=== PATIENT | male | born 1970 | race Caucasian/White ===

== ENCOUNTER 2019-08-18 13:05 | Inpatient (IN) | payer OTHER ==
[~2019-08-18] VITALS: Ht 193 cm; Wt 152.9 kg
[2019-08-18] MEDS ORDERED: ALBUTEROL HFA 90 MCG/SPRAY INH PRN (14:00)
[2019-08-18 14:03] LABS: BASOPHILS # (AUTO) 0.03 x10^3/uL (0-0.1); BASOPHILS % (AUTO) 0 % (0-1); EOSINOPHILS % (AUTO) 0 % (1-7); LYMPHOCYTES # (AUTO) 0.86 x10^3/uL (1-3.4); LYMPHOCYTES % (AUTO) 12 % (22-44); MD NO; MEAN CORPUSCULAR HEMOGLOBIN 28.4 pg (27.5-34.5); MEAN CORPUSCULAR HGB CONC 32.3 g/dL (33.2-36.2); MEAN CORPUSCULAR VOLUME 87.9 fL (81-97); MEAN PLATELET VOLUME 9.3 fL (7.4-10.4); MONOCYTES # (AUTO) 0.65 x10^3/uL (0.2-0.8); MONOCYTES % (AUTO) 9 % (2-9); NEUTROPHILS # (AUTO) 5.95 x10^3/uL (1.8-6.8); NEUTROPHILS % (AUTO) 80 % (42-75); PLATELET COUNT 182 x10^3/uL (130-400); RED BLOOD COUNT 5.45 x10^6/uL (4.38-5.82); RED CELL DISTRIBUTION WIDTH 15.2 % (9.4-14.8)
[2019-08-18 14:15] LABS: ALANINE AMINOTRANSFERASE 24 U/L (12-78); ALBUMIN 3.3 g/dL (3.4-5.0); ANION GAP 7 mmol/L (5-15); CALCIUM 8.5 mg/dL (8.5-10.1); CHLORIDE 104 mmol/L (98-107); CREATININE 1.15 mg/dL (0.7-1.3)
[2019-08-18 14:19] LABS: ALKALINE PHOSPHATASE 48 U/L (45-117); BILIRUBIN,TOTAL 0.4 mg/dL (0.2-1.0); TOTAL PROTEIN 7.8 g/dL (6.4-8.2); TROPONIN I < 0.015 ng/mL (0.000-0.045)
--- NOTE | 2019-08-18 14:58 | NUR ---
AFTER RECEIVING ALBUTEROL PER MAR, PT NOTED TO HAVE RR 24, OXYGEN SATURATION FLUCATING 88 TO 91 PERCENT ON RA
[2019-08-18] MEDS ORDERED: CEFTRIAXONE PMX 1GM/50ML 50 ML ONE (15:28)
[2019-08-18] MEDS ORDERED: ONDANSETRON 2MG/ML, 2ML IVPush PRN (15:30)
[2019-08-18] MEDS ORDERED: AZITHROMYCIN 500 MG in SODIUM CHLORIDE 0.9% 250 ML IV ONE (15:30)
[2019-08-18] MEDS ORDERED: CEFTRIAXONE PMX 2GM/50ML 50 ML IV SCH (15:30)
[2019-08-18] MEDS ORDERED: CEFTRIAXONE PMX 1GM/50ML 50 ML IV ONE (15:30)
[2019-08-18] MEDS ORDERED: ONDANSETRON ODT 4 MG PO PRN (15:30)
[2019-08-18] MEDS ORDERED: METOCLOPRAMIDE 5 MG/ML, 2ML IVPush PRN (15:30)
[2019-08-18] MEDS ORDERED: GUAIFENESIN/DM 200-20MG, 10ML UDC PO PRN (15:30)
[2019-08-18] MEDS ORDERED: ENOXAPARIN 40 MG/0.4 ML SQ SCH ×2 (15:30)
[2019-08-18] MEDS ORDERED: PROMETHAZINE 25 MG/ML, 1ML IM PRN (15:30)
[2019-08-18] MEDS ORDERED: ENOXAPARIN 40 MG/0.4 ML ONE (15:35)
[2019-08-18] MEDS ORDERED: ACETAMINOPHEN 325 MG TABLET ONE (15:35)
[2019-08-18] MEDS ORDERED: ONDANSETRON 2MG/ML, 2ML ONE (15:35)
[2019-08-18] MEDS ORDERED: methylPREDNISolone SOD SUCC 125 MG/2 ML ONE (15:35)
[2019-08-18] MEDS: methylPREDNISolone SOD SUCC 125 MG/2 ML IVPush SCH ×2 (15:39→20:33)
[2019-08-18] MEDS: ACETAMINOPHEN 325 MG TABLET PO PRN (15:39)
--- NOTE | 2019-08-18 15:53 | NUR ---
PT MEDICATED NOTED ON MAR AND PLACED ON NC 2L
[2019-08-18 15:55] LABS: C-REACTIVE PROTEIN, QUANT 8.9 mg/dL (0.02-0.49)
--- NOTE | 2019-08-18 16:26 | NUR ---
REPORT TO SIN OLSEN. PT TO BE TRANSPORTED TO FLOOR
--- NOTE | 2019-08-18 16:57 | NUR ---
AFTER HOSPITALIST EXAM PT TRANSFERED TO FLOOR
[2019-08-18 17:10] VITALS: BP 119/60
[2019-08-18] MEDS: ASCORBIC ACID 500 MG TABLET PO SCH ×2 (17:31→20:34)
[2019-08-18 20:00] VITALS: BP 114/64
[2019-08-18] MEDS: GUAIFENESIN ER 600 MG TABLET PO SCH (20:34)
[2019-08-18] MEDS: MELATONIN 5 MG TABLET PO SCH (20:34)
[2019-08-19 02:30] VITALS: BP 117/66
[2019-08-19] MEDS: methylPREDNISolone SOD SUCC 125 MG/2 ML IVPush SCH ×4 (03:14→21:56)
[2019-08-19] MEDS: ENOXAPARIN 30 MG/0.3 ML SQ SCH ×2 (03:14→14:31)
[2019-08-19 05:37] LABS: BASOPHILS % (AUTO) 0 % (0-1); EOSINOPHILS % (AUTO) 0 % (1-7); LYMPHOCYTES # (AUTO) 0.78 x10^3/uL (1-3.4); LYMPHOCYTES % (AUTO) 10 % (22-44); MD NO; MEAN CORPUSCULAR HEMOGLOBIN 28.9 pg (27.5-34.5); MEAN CORPUSCULAR HGB CONC 32.3 g/dL (33.2-36.2); MEAN CORPUSCULAR VOLUME 89.3 fL (81-97); MEAN PLATELET VOLUME 9.6 fL (7.4-10.4); MONOCYTES # (AUTO) 0.22 x10^3/uL (0.2-0.8); MONOCYTES % (AUTO) 3 % (2-9); NEUTROPHILS # (AUTO) 6.73 x10^3/uL (1.8-6.8); NEUTROPHILS % (AUTO) 87 % (42-75); PLATELET COUNT 164 x10^3/uL (130-400); RED BLOOD COUNT 5.65 x10^6/uL (4.38-5.82); RED CELL DISTRIBUTION WIDTH 15.9 % (9.4-14.8)
[2019-08-19 05:47] LABS: CHLORIDE 106 mmol/L (98-107)
[2019-08-19 05:55] LABS: ALANINE AMINOTRANSFERASE 26 U/L (12-78); ALBUMIN 3.2 g/dL (3.4-5.0); ALKALINE PHOSPHATASE 49 U/L (45-117); ANION GAP 7 mmol/L (5-15); BILIRUBIN,TOTAL 0.4 mg/dL (0.2-1.0); CALCIUM 8.5 mg/dL (8.5-10.1); CREATININE 1.05 mg/dL (0.7-1.3); TOTAL PROTEIN 8.2 g/dL (6.4-8.2)
[2019-08-19 07:12] VITALS: BP 98/43
[2019-08-19] MEDS: SENNA/DOCUSATE TABLET PO SCH (09:00)
[2019-08-19] MEDS: AZITHROMYCIN 500 MG TABLET PO SCH (09:40)
[2019-08-19] MEDS: CHOLECALCIFEROL 1,000 UNIT TABLET PO SCH (09:40)
[2019-08-19] MEDS: ASCORBIC ACID 500 MG TABLET PO SCH ×3 (09:40→21:55)
[2019-08-19] MEDS: GUAIFENESIN ER 600 MG TABLET PO SCH ×2 (09:40→21:55)
[2019-08-19] MEDS: ZINC SULFATE 220 MG CAPSULE PO SCH (09:41)
[2019-08-19 12:18] VITALS: BP 112/67
[2019-08-19] MEDS ORDERED: OMNIPAQUE 350 MG/ML, 100ML BOTTLE ONE (16:25)
[2019-08-19] MEDS: ACETAMINOPHEN 325 MG TABLET PO PRN (16:41)
[2019-08-19] MEDS: CEFTRIAXONE PMX 2GM/50ML 50 ML IV SCH (16:41)
[2019-08-19 19:33] VITALS: BP 124/55
[2019-08-19] MEDS: MELATONIN 5 MG TABLET PO SCH (21:55)
[2019-08-19] MEDS: BUTALB/APAP/CAFFEINE 50MG/325MG/40MG PO PRN (21:56)
[2019-08-20 03:09] VITALS: BP 125/65
[2019-08-20] MEDS: ENOXAPARIN 30 MG/0.3 ML SQ SCH ×2 (03:10→16:21)
[2019-08-20] MEDS: methylPREDNISolone SOD SUCC 125 MG/2 ML IVPush SCH ×4 (03:10→21:42)
[2019-08-20] MEDS: BUTALB/APAP/CAFFEINE 50MG/325MG/40MG PO PRN (03:11)
[2019-08-20 07:10] VITALS: BP 100/51
[2019-08-20] MEDS: SENNA/DOCUSATE TABLET PO SCH (09:00)
[2019-08-20] MEDS: CHOLECALCIFEROL 1,000 UNIT TABLET PO SCH (09:57)
[2019-08-20] MEDS: ZINC SULFATE 220 MG CAPSULE PO SCH (09:57)
[2019-08-20] MEDS: GUAIFENESIN ER 600 MG TABLET PO SCH ×2 (09:57→21:42)
[2019-08-20] MEDS: AZITHROMYCIN 500 MG TABLET PO SCH (09:57)
[2019-08-20] MEDS: ASCORBIC ACID 500 MG TABLET PO SCH ×3 (09:57→21:42)
[2019-08-20 14:18] VITALS: BP 128/74
[2019-08-20] MEDS ORDERED: FUROSEMIDE 40 MG/4 ML IV ONE (16:00)
[2019-08-20] MEDS: CEFTRIAXONE PMX 2GM/50ML 50 ML IV SCH (17:19)
[2019-08-20 19:30] VITALS: BP 126/67
[2019-08-20] MEDS: MELATONIN 5 MG TABLET PO SCH (21:42)
[2019-08-21 03:15] VITALS: BP 125/76
[2019-08-21] MEDS: methylPREDNISolone SOD SUCC 125 MG/2 ML IVPush SCH ×3 (03:17→15:48)
[2019-08-21] MEDS: ENOXAPARIN 30 MG/0.3 ML SQ SCH ×2 (03:17→15:48)
[2019-08-21] MEDS: SENNA/DOCUSATE TABLET PO SCH ×2 (09:00→15:47)
[2019-08-21 09:08] VITALS: BP 102/61
[2019-08-21] MEDS: AZITHROMYCIN 500 MG TABLET PO SCH (09:45)
[2019-08-21] MEDS: CHOLECALCIFEROL 1,000 UNIT TABLET PO SCH (09:46)
[2019-08-21] MEDS: GUAIFENESIN ER 600 MG TABLET PO SCH ×2 (09:46→20:30)
[2019-08-21] MEDS: ASCORBIC ACID 500 MG TABLET PO SCH ×3 (09:46→20:30)
[2019-08-21] MEDS: ZINC SULFATE 220 MG CAPSULE PO SCH (09:46)
[2019-08-21] MEDS: BUTALB/APAP/CAFFEINE 50MG/325MG/40MG PO PRN (12:42)
[2019-08-21 13:10] VITALS: BP 104/61
[2019-08-21] MEDS: CEFTRIAXONE PMX 2GM/50ML 50 ML IV SCH (17:18)
[2019-08-21] MEDS: DEXAMETHASONE 4 MG/ML, 1ML IVPush SCH (17:18)
[2019-08-21] MEDS ORDERED: REMDESIVIR 100 MG in SODIUM CHLORIDE 0.9% 250 ML IVPB ONE (17:30)
[2019-08-21] MEDS ORDERED: REMDESIVIR 200 MG in SODIUM CHLORIDE 0.9% 250 ML IVPB ONE (17:30)
[2019-08-21] MEDS: MELATONIN 5 MG TABLET PO SCH (20:30)
[2019-08-22 00:23] VITALS: BP 126/75
[2019-08-22] MEDS: DEXAMETHASONE 4 MG/ML, 1ML IVPush SCH ×2 (04:20→16:26)
[2019-08-22] MEDS: ENOXAPARIN 30 MG/0.3 ML SQ SCH (04:20)
[2019-08-22 05:20] LABS: CHLORIDE 104 mmol/L (98-107)
[2019-08-22 05:28] LABS: ALANINE AMINOTRANSFERASE 42 U/L (12-78); ALBUMIN 2.4 g/dL (3.4-5.0); ALKALINE PHOSPHATASE 51 U/L (45-117); ANION GAP 6 mmol/L (5-15); BILIRUBIN,TOTAL 0.3 mg/dL (0.2-1.0); CALCIUM 8.6 mg/dL (8.5-10.1); CREATININE 0.92 mg/dL (0.7-1.3); TOTAL PROTEIN 7.3 g/dL (6.4-8.2)
[2019-08-22 05:54] LABS: BASOPHILS % (AUTO) 0 % (0-1); EOSINOPHILS % (AUTO) 0 % (1-7); LYMPHOCYTES # (AUTO) 0.49 x10^3/uL (1-3.4); LYMPHOCYTES % (AUTO) 3 % (22-44); MD SCAN; MEAN CORPUSCULAR HEMOGLOBIN 28.5 pg (27.5-34.5); MEAN CORPUSCULAR HGB CONC 32.1 g/dL (33.2-36.2); MEAN CORPUSCULAR VOLUME 88.8 fL (81-97); MEAN PLATELET VOLUME 10.6 fL (7.4-10.4); MONOCYTES # (AUTO) 1.46 x10^3/uL (0.2-0.8); MONOCYTES % (AUTO) 8 % (2-9); NEUTROPHILS # (AUTO) 17.39 x10^3/uL (1.8-6.8); NEUTROPHILS % (AUTO) 90 % (42-75); PLATELET COUNT 216 x10^3/uL (130-400); RED BLOOD COUNT 5.39 x10^6/uL (4.38-5.82); RED CELL DISTRIBUTION WIDTH 15.9 % (9.4-14.8)
[2019-08-22] MEDS ORDERED: FUROSEMIDE 40 MG/4 ML ONE (07:04)
[2019-08-22] MEDS: FUROSEMIDE 20 MG/2 ML IV SCH ×2 (07:13→18:34)
[2019-08-22] MEDS ORDERED: HEPARIN 5,000 UNITS/ML, 1ML IV ONE (07:30)
[2019-08-22] MEDS ORDERED: CHOLECALCIFEROL 1,000 UNIT TABLET PO SCH (09:00)
[2019-08-22] MEDS: SENNA/DOCUSATE TABLET PO SCH (09:00)
[2019-08-22] MEDS: HEPARIN 25,000 UNITS/250ML PMX 250 ML IV PRN (09:38)
[2019-08-22] MEDS: CHOLECALCIFEROL 5,000u TAB PO SCH (09:38)
[2019-08-22] MEDS: ZINC SULFATE 220 MG CAPSULE PO SCH (09:39)
[2019-08-22] MEDS: AZITHROMYCIN 500 MG TABLET PO SCH (09:39)
[2019-08-22] MEDS: GUAIFENESIN ER 600 MG TABLET PO SCH ×2 (09:40→20:08)
[2019-08-22] MEDS: ASCORBIC ACID 500 MG TABLET PO SCH ×3 (09:40→20:08)
[2019-08-22] MEDS: CEFTRIAXONE PMX 2GM/50ML 50 ML IV SCH (16:27)
[2019-08-22] MEDS: HEPARIN 5,000 UNITS/ML, 1ML IV PRN (16:45)
[2019-08-22] MEDS: REMDESIVIR 100 MG in SODIUM CHLORIDE 0.9% 250 ML IVPB SCH (17:46)
[2019-08-22] MEDS: MELATONIN 5 MG TABLET PO SCH (20:08)
[2019-08-23] MEDS: HEPARIN 25,000 UNITS/250ML PMX 250 ML IV PRN ×2 (00:33→17:40)
[2019-08-23 04:00] VITALS: BP 106/40
[2019-08-23 05:48] LABS: ALANINE AMINOTRANSFERASE 44 U/L (12-78); ALBUMIN 2.4 g/dL (3.4-5.0); ANION GAP 4 mmol/L (5-15); CALCIUM 8.7 mg/dL (8.5-10.1); CHLORIDE 105 mmol/L (98-107); CREATININE 0.86 mg/dL (0.7-1.3)
[2019-08-23 05:50] LABS: ALKALINE PHOSPHATASE 43 U/L (45-117); BILIRUBIN,TOTAL 0.3 mg/dL (0.2-1.0); TOTAL PROTEIN 6.9 g/dL (6.4-8.2)
[2019-08-23] MEDS: DEXAMETHASONE 4 MG/ML, 1ML IVPush SCH ×2 (06:03→16:55)
[2019-08-23] MEDS: HEPARIN 5,000 UNITS/ML, 1ML IV PRN ×3 (06:04→20:08)
[2019-08-23] MEDS: FUROSEMIDE 20 MG/2 ML IV SCH ×2 (06:55→18:30)
[2019-08-23] MEDS: CHOLECALCIFEROL 5,000u TAB PO SCH (08:19)
[2019-08-23] MEDS: ZINC SULFATE 220 MG CAPSULE PO SCH (08:19)
[2019-08-23] MEDS: GUAIFENESIN ER 600 MG TABLET PO SCH ×2 (08:19→20:07)
[2019-08-23] MEDS: ASCORBIC ACID 500 MG TABLET PO SCH ×3 (08:19→20:07)
[2019-08-23] MEDS: SENNA/DOCUSATE TABLET PO SCH (09:00)
[2019-08-23] MEDS: CEFTRIAXONE PMX 2GM/50ML 50 ML IV SCH (16:55)
[2019-08-23] MEDS: REMDESIVIR 100 MG in SODIUM CHLORIDE 0.9% 250 ML IVPB SCH (17:37)
[2019-08-23] MEDS: MELATONIN 5 MG TABLET PO SCH (20:08)
[2019-08-24 02:34] LABS: ALANINE AMINOTRANSFERASE 46 U/L (12-78); ALBUMIN 2.2 g/dL (3.4-5.0); ANION GAP 5 mmol/L (5-15); CALCIUM 8.1 mg/dL (8.5-10.1); CHLORIDE 104 mmol/L (98-107); CREATININE 0.78 mg/dL (0.7-1.3)
[2019-08-24 02:37] LABS: ALKALINE PHOSPHATASE 39 U/L (45-117); BILIRUBIN,TOTAL 0.3 mg/dL (0.2-1.0); TOTAL PROTEIN 6.4 g/dL (6.4-8.2)
[2019-08-24 04:00] VITALS: BP 114/48
[2019-08-24] MEDS: HEPARIN 25,000 UNITS/250ML PMX 250 ML IV PRN ×2 (04:51→17:21)
[2019-08-24] MEDS: DEXAMETHASONE 4 MG/ML, 1ML IVPush SCH ×2 (04:53→17:22)
[2019-08-24] MEDS: FUROSEMIDE 20 MG/2 ML IV SCH ×2 (08:47→20:16)
[2019-08-24] MEDS: ZINC SULFATE 220 MG CAPSULE PO SCH (09:00)
[2019-08-24] MEDS: SENNA/DOCUSATE TABLET PO SCH (09:00)
[2019-08-24] MEDS: CHOLECALCIFEROL 5,000u TAB PO SCH (09:00)
[2019-08-24] MEDS: ASCORBIC ACID 500 MG TABLET PO SCH ×3 (09:00→20:19)
[2019-08-24] MEDS: GUAIFENESIN ER 600 MG TABLET PO SCH ×2 (09:44→20:17)
[2019-08-24] MEDS: CEFTRIAXONE PMX 2GM/50ML 50 ML IV SCH (17:15)
[2019-08-24] MEDS: REMDESIVIR 100 MG in SODIUM CHLORIDE 0.9% 250 ML IVPB SCH (17:23)
[2019-08-24] MEDS: MELATONIN 5 MG TABLET PO SCH (20:17)
[2019-08-25] MEDS: HEPARIN 25,000 UNITS/250ML PMX 250 ML IV PRN ×2 (03:47→14:00)
[2019-08-25] MEDS: DEXAMETHASONE 4 MG/ML, 1ML IVPush SCH ×2 (03:48→17:17)
[2019-08-25 04:00] VITALS: BP 112/55
[2019-08-25 05:26] LABS: CHLORIDE 102 mmol/L (98-107)
[2019-08-25 05:34] LABS: ALANINE AMINOTRANSFERASE 48 U/L (12-78); ALBUMIN 2.4 g/dL (3.4-5.0); ALKALINE PHOSPHATASE 40 U/L (45-117); ANION GAP 7 mmol/L (5-15); BILIRUBIN,TOTAL 0.3 mg/dL (0.2-1.0); CALCIUM 8.3 mg/dL (8.5-10.1); CREATININE 0.78 mg/dL (0.7-1.3); TOTAL PROTEIN 6.7 g/dL (6.4-8.2)
[2019-08-25] MEDS: CHOLECALCIFEROL 5,000u TAB PO SCH (08:32)
[2019-08-25] MEDS: ASCORBIC ACID 500 MG TABLET PO SCH ×3 (08:32→19:52)
[2019-08-25] MEDS: FUROSEMIDE 20 MG/2 ML IV SCH ×2 (08:32→19:52)
[2019-08-25] MEDS: ZINC SULFATE 220 MG CAPSULE PO SCH (08:32)
[2019-08-25] MEDS: SENNA/DOCUSATE TABLET PO SCH (08:33)
[2019-08-25] MEDS: GUAIFENESIN ER 600 MG TABLET PO SCH ×2 (08:33→19:52)
[2019-08-25 09:46] LABS: MEAN CORPUSCULAR HEMOGLOBIN 28.4 pg (27.5-34.5); MEAN CORPUSCULAR VOLUME 88.9 fL (81-97); MEAN PLATELET VOLUME 10.2 fL (7.4-10.4); PLATELET COUNT 279 x10^3/uL (130-400); RED BLOOD COUNT 5.38 x10^6/uL (4.38-5.82); RED CELL DISTRIBUTION WIDTH 15.4 % (9.4-14.8)
[2019-08-25 10:11] LABS: BASOPHILS # (AUTO) 0.02 x10^3/uL (0-0.1); BASOPHILS % (AUTO) 0 % (0-1); EOSINOPHILS # (AUTO) 0.12 x10^3/uL (0-0.4); EOSINOPHILS % (AUTO) 1 % (1-7); LYMPHOCYTES # (AUTO) 0.98 x10^3/uL (1-3.4); LYMPHOCYTES % (AUTO) 9 % (22-44); MD SCAN; MONOCYTES % (AUTO) 2 % (2-9); NEUTROPHILS # (AUTO) 9.66 x10^3/uL (1.8-6.8); NEUTROPHILS % (AUTO) 88 % (42-75)
[2019-08-25] MEDS: CEFTRIAXONE PMX 2GM/50ML 50 ML IV SCH (17:17)
[2019-08-25] MEDS: REMDESIVIR 100 MG in SODIUM CHLORIDE 0.9% 250 ML IVPB SCH (17:32)
[2019-08-25] MEDS: MELATONIN 5 MG TABLET PO SCH (19:53)
[2019-08-26] MEDS: HEPARIN 25,000 UNITS/250ML PMX 250 ML IV PRN ×2 (03:23→13:30)
[2019-08-26 04:00] VITALS: BP 104/51
[2019-08-26 04:53] LABS: ALANINE AMINOTRANSFERASE 46 U/L (12-78); ALBUMIN 2.6 g/dL (3.4-5.0); ANION GAP 2 mmol/L (5-15); CHLORIDE 103 mmol/L (98-107)
[2019-08-26 04:55] LABS: ALKALINE PHOSPHATASE 40 U/L (45-117); BILIRUBIN,TOTAL 0.3 mg/dL (0.2-1.0); CREATININE 0.81 mg/dL (0.7-1.3); TOTAL PROTEIN 6.7 g/dL (6.4-8.2)
[2019-08-26] MEDS: DEXAMETHASONE 4 MG/ML, 1ML IVPush SCH ×2 (04:55→17:04)
[2019-08-26 05:40] LABS: MEAN CORPUSCULAR HEMOGLOBIN 28.4 pg (27.5-34.5); MEAN CORPUSCULAR HGB CONC 31.8 g/dL (33.2-36.2); MEAN CORPUSCULAR VOLUME 89.3 fL (81-97); MEAN PLATELET VOLUME 9.6 fL (7.4-10.4); PLATELET COUNT 247 x10^3/uL (130-400); RED BLOOD COUNT 5.53 x10^6/uL (4.38-5.82); RED CELL DISTRIBUTION WIDTH 15.4 % (9.4-14.8)
[2019-08-26 06:29] LABS: BASOPHILS # (AUTO) 0.06 x10^3/uL (0-0.1); BASOPHILS % (AUTO) 1 % (0-1); EOSINOPHILS # (AUTO) 0.24 x10^3/uL (0-0.4); EOSINOPHILS % (AUTO) 2 % (1-7); LYMPHOCYTES # (AUTO) 0.98 x10^3/uL (1-3.4); LYMPHOCYTES % (AUTO) 8 % (22-44); MD SCAN; MONOCYTES # (AUTO) 0.48 x10^3/uL (0.2-0.8); MONOCYTES % (AUTO) 4 % (2-9); NEUTROPHILS % (AUTO) 87 % (42-75)
[2019-08-26] MEDS: ASCORBIC ACID 500 MG TABLET PO SCH ×3 (08:24→20:16)
[2019-08-26] MEDS: CHOLECALCIFEROL 5,000u TAB PO SCH (08:24)
[2019-08-26] MEDS: ZINC SULFATE 220 MG CAPSULE PO SCH (08:24)
[2019-08-26] MEDS: GUAIFENESIN ER 600 MG TABLET PO SCH ×2 (08:24→20:16)
[2019-08-26] MEDS: SENNA/DOCUSATE TABLET PO SCH (08:25)
[2019-08-26] MEDS: FUROSEMIDE 20 MG/2 ML IV SCH ×2 (08:27→20:15)
[2019-08-26] MEDS: CEFTRIAXONE PMX 2GM/50ML 50 ML IV SCH (17:03)
[2019-08-26] MEDS: MELATONIN 5 MG TABLET PO SCH (20:16)
[2019-08-27] MEDS: HEPARIN 25,000 UNITS/250ML PMX 250 ML IV PRN ×3 (00:05→22:50)
[2019-08-27 04:00] VITALS: BP 112/57
[2019-08-27 04:55] LABS: MEAN CORPUSCULAR HGB CONC 32.7 g/dL (33.2-36.2); MEAN CORPUSCULAR VOLUME 88.8 fL (81-97); MEAN PLATELET VOLUME 10.3 fL (7.4-10.4); PLATELET COUNT 227 x10^3/uL (130-400); RED BLOOD COUNT 5.58 x10^6/uL (4.38-5.82); RED CELL DISTRIBUTION WIDTH 15.6 % (9.4-14.8)
[2019-08-27 05:07] LABS: CHLORIDE 101 mmol/L (98-107)
[2019-08-27 05:11] LABS: ANION GAP 7 mmol/L (5-15); CREATININE 0.84 mg/dL (0.7-1.3)
[2019-08-27] MEDS: DEXAMETHASONE 4 MG/ML, 1ML IVPush SCH ×2 (05:12→16:53)
[2019-08-27 05:57] LABS: BASOPHILS # (AUTO) 0.05 x10^3/uL (0-0.1); BASOPHILS % (AUTO) 0 % (0-1); EOSINOPHILS # (AUTO) 0.51 x10^3/uL (0-0.4); EOSINOPHILS % (AUTO) 3 % (1-7); LYMPHOCYTES # (AUTO) 0.95 x10^3/uL (1-3.4); LYMPHOCYTES % (AUTO) 6 % (22-44); MD SCAN; MONOCYTES # (AUTO) 0.89 x10^3/uL (0.2-0.8); MONOCYTES % (AUTO) 5 % (2-9); NEUTROPHILS # (AUTO) 14.78 x10^3/uL (1.8-6.8); NEUTROPHILS % (AUTO) 86 % (42-75)
[2019-08-27] MEDS: ASCORBIC ACID 500 MG TABLET PO SCH ×3 (08:56→19:56)
[2019-08-27] MEDS: FUROSEMIDE 20 MG/2 ML IV SCH ×2 (08:56→19:57)
[2019-08-27] MEDS: GUAIFENESIN ER 600 MG TABLET PO SCH ×2 (08:57→19:56)
[2019-08-27] MEDS: CHOLECALCIFEROL 5,000u TAB PO SCH (08:57)
[2019-08-27] MEDS: ZINC SULFATE 220 MG CAPSULE PO SCH (08:57)
[2019-08-27] MEDS: SENNA/DOCUSATE TABLET PO SCH (08:57)
[2019-08-27] MEDS: CEFTRIAXONE PMX 2GM/50ML 50 ML IV SCH (16:52)
[2019-08-27] MEDS: MELATONIN 5 MG TABLET PO SCH (19:57)
[2019-08-28 04:00] VITALS: BP 138/57
[2019-08-28 05:36] LABS: MEAN CORPUSCULAR HEMOGLOBIN 28.7 pg (27.5-34.5); MEAN CORPUSCULAR HGB CONC 32.9 g/dL (33.2-36.2); MEAN CORPUSCULAR VOLUME 87.3 fL (81-97); PLATELET COUNT 146 x10^3/uL (130-400); RED BLOOD COUNT 5.74 x10^6/uL (4.38-5.82); RED CELL DISTRIBUTION WIDTH 15.3 % (9.4-14.8)
[2019-08-28 05:45] LABS: ANION GAP 3 mmol/L (5-15); CALCIUM 9.2 mg/dL (8.5-10.1); CHLORIDE 101 mmol/L (98-107); CREATININE 0.92 mg/dL (0.7-1.3)
[2019-08-28 05:55] LABS: BASOPHILS # (AUTO) 0.04 x10^3/uL (0-0.1); BASOPHILS % (AUTO) 0 % (0-1); EOSINOPHILS # (AUTO) 0.54 x10^3/uL (0-0.4); EOSINOPHILS % (AUTO) 3 % (1-7); LYMPHOCYTES # (AUTO) 0.92 x10^3/uL (1-3.4); LYMPHOCYTES % (AUTO) 5 % (22-44); MD SCAN; MONOCYTES # (AUTO) 1.16 x10^3/uL (0.2-0.8); MONOCYTES % (AUTO) 6 % (2-9); NEUTROPHILS # (AUTO) 15.86 x10^3/uL (1.8-6.8); NEUTROPHILS % (AUTO) 86 % (42-75)
[2019-08-28] MEDS: DEXAMETHASONE 4 MG/ML, 1ML IVPush SCH ×2 (05:56→16:45)
[2019-08-28] MEDS: ASCORBIC ACID 500 MG TABLET PO SCH ×3 (08:52→20:51)
[2019-08-28] MEDS: FUROSEMIDE 20 MG/2 ML IV SCH ×2 (08:52→20:50)
[2019-08-28] MEDS: ZINC SULFATE 220 MG CAPSULE PO SCH (08:52)
[2019-08-28] MEDS: CHOLECALCIFEROL 5,000u TAB PO SCH (08:52)
[2019-08-28] MEDS: SENNA/DOCUSATE TABLET PO SCH (08:53)
[2019-08-28] MEDS: GUAIFENESIN ER 600 MG TABLET PO SCH ×2 (10:53→20:50)
[2019-08-28] MEDS: HEPARIN 25,000 UNITS/250ML PMX 250 ML IV PRN (10:55)
[2019-08-28 20:42] VITALS: BP 150/57
[2019-08-28] MEDS: MELATONIN 5 MG TABLET PO SCH (20:51)
[2019-08-29] MEDS: HEPARIN 25,000 UNITS/250ML PMX 250 ML IV PRN ×2 (00:14→12:59)
[2019-08-29 03:54] VITALS: BP 113/61
[2019-08-29 04:51] LABS: MEAN CORPUSCULAR HEMOGLOBIN 28.8 pg (27.5-34.5); MEAN CORPUSCULAR HGB CONC 32.8 g/dL (33.2-36.2); MEAN CORPUSCULAR VOLUME 87.8 fL (81-97); RED BLOOD COUNT 5.85 x10^6/uL (4.38-5.82); RED CELL DISTRIBUTION WIDTH 15.4 % (9.4-14.8)
[2019-08-29 05:48] LABS: BASOPHILS # (AUTO) 0.16 x10^3/uL (0-0.1); BASOPHILS % (AUTO) 1 % (0-1); EOSINOPHILS # (AUTO) 0.27 x10^3/uL (0-0.4); EOSINOPHILS % (AUTO) 1 % (1-7); LYMPHOCYTES # (AUTO) 1.03 x10^3/uL (1-3.4); LYMPHOCYTES % (AUTO) 5 % (22-44); MD SCAN; MEAN PLATELET VOLUME 11.8 fL (7.4-10.4); MONOCYTES # (AUTO) 1.36 x10^3/uL (0.2-0.8); MONOCYTES % (AUTO) 6 % (2-9); NEUTROPHILS # (AUTO) 19.67 x10^3/uL (1.8-6.8); NEUTROPHILS % (AUTO) 88 % (42-75); PLATELET COUNT 115 x10^3/uL (130-400)
[2019-08-29] MEDS: DEXAMETHASONE 4 MG/ML, 1ML IVPush SCH ×2 (05:53→16:05)
[2019-08-29] MEDS: ZINC SULFATE 220 MG CAPSULE PO SCH (07:53)
[2019-08-29] MEDS: FUROSEMIDE 20 MG/2 ML IV SCH ×2 (07:53→20:11)
[2019-08-29] MEDS: ASCORBIC ACID 500 MG TABLET PO SCH ×3 (07:53→20:12)
[2019-08-29] MEDS: SENNA/DOCUSATE TABLET PO SCH (07:53)
[2019-08-29] MEDS: GUAIFENESIN ER 600 MG TABLET PO SCH ×2 (07:53→20:12)
[2019-08-29] MEDS: CHOLECALCIFEROL 5,000u TAB PO SCH (07:53)
[2019-08-29 08:30] VITALS: BP 113/6
[2019-08-29 15:00] VITALS: BP 130/93
[2019-08-29 19:53] VITALS: BP 110/43
[2019-08-29] MEDS: MELATONIN 5 MG TABLET PO SCH (20:12)
[2019-08-30] MEDS: HEPARIN 25,000 UNITS/250ML PMX 250 ML IV PRN ×3 (02:49→23:41)
[2019-08-30 02:54] VITALS: BP 109/62
[2019-08-30] MEDS: DEXAMETHASONE 4 MG/ML, 1ML IVPush SCH ×2 (04:35→16:39)
[2019-08-30 05:03] LABS: MEAN CORPUSCULAR HEMOGLOBIN 28.7 pg (27.5-34.5); MEAN CORPUSCULAR HGB CONC 32.8 g/dL (33.2-36.2); MEAN CORPUSCULAR VOLUME 87.5 fL (81-97); MEAN PLATELET VOLUME 12.5 fL (7.4-10.4); PLATELET COUNT 73 x10^3/uL (130-400); RED BLOOD COUNT 5.76 x10^6/uL (4.38-5.82); RED CELL DISTRIBUTION WIDTH 15.4 % (9.4-14.8)
[2019-08-30 05:12] LABS: ALANINE AMINOTRANSFERASE 45 U/L (12-78); ANION GAP 6 mmol/L (5-15); CHLORIDE 101 mmol/L (98-107)
[2019-08-30 05:15] LABS: ALKALINE PHOSPHATASE 46 U/L (45-117); BILIRUBIN,TOTAL 0.5 mg/dL (0.2-1.0); CREATININE 0.85 mg/dL (0.7-1.3); TOTAL PROTEIN 7.4 g/dL (6.4-8.2)
[2019-08-30 05:53] LABS: MD YES
[2019-08-30 05:54] LABS: BAND#(MANUAL) 0.75 x10^3/uL; BANDS%(MANUAL) 3 % (0-7); LYMPHS% (MANUAL) 4 % (22-44); METAMYELOCYTES# (MANUAL) 0.25 x10^3/uL (0-0); METAMYELOCYTES% (MANUAL) 1 % (0-1); MONOS#(MANUAL) 1.74 x10^3/uL (0.3-2.7); MONOS% (MANUAL) 7 % (2-9); SEG#(MANUAL) 21.17 x10^3/uL (1.8-6.8); SEGS% (MANUAL) 85 % (42-75)
[2019-08-30 05:55] LABS: <PLATELET ESTIMATE> DECREASED; <RBC MORPHOLOGY> NORMAL; LARGE PLATELETS 1+
[2019-08-30 08:30] VITALS: BP 142/87
[2019-08-30] MEDS: SENNA/DOCUSATE TABLET PO SCH (09:00)
[2019-08-30] MEDS: THIAMINE 100MG TABLET PO SCH ×2 (09:43→22:12)
[2019-08-30] MEDS: ZINC SULFATE 220 MG CAPSULE PO SCH (09:43)
[2019-08-30] MEDS: ASCORBIC ACID 500 MG TABLET PO SCH ×3 (09:43→22:12)
[2019-08-30] MEDS: TOCILIZUMAB 800 MG in SODIUM CHLORIDE 0.9% 60 ML IVPB SCH ×2 (09:43→22:11)
[2019-08-30] MEDS: FUROSEMIDE 20 MG/2 ML IV SCH ×2 (09:43→22:11)
[2019-08-30] MEDS: GUAIFENESIN ER 600 MG TABLET PO SCH ×2 (09:43→22:12)
[2019-08-30] MEDS: CHOLECALCIFEROL 5,000u TAB PO SCH (09:43)
[2019-08-30] MEDS: MELATONIN 5 MG TABLET PO SCH (22:12)
[2019-08-31] MEDS: DEXAMETHASONE 4 MG/ML, 1ML IVPush SCH ×2 (05:31→17:38)
[2019-08-31 05:41] LABS: D-DIMER 0.42 ug/mlFEU (0.00-0.52)
[2019-08-31 05:42] LABS: MEAN CORPUSCULAR HEMOGLOBIN 28.8 pg (27.5-34.5); MEAN CORPUSCULAR HGB CONC 32.7 g/dL (33.2-36.2); MEAN CORPUSCULAR VOLUME 87.9 fL (81-97); PLATELET COUNT 60 x10^3/uL (130-400); RED BLOOD COUNT 5.87 x10^6/uL (4.38-5.82); RED CELL DISTRIBUTION WIDTH 15.8 % (9.4-14.8)
[2019-08-31 05:49] LABS: ANION GAP 6 mmol/L (5-15); CALCIUM 8.9 mg/dL (8.5-10.1); CHLORIDE 101 mmol/L (98-107)
[2019-08-31 05:56] LABS: C-REACTIVE PROTEIN, QUANT 0.15 mg/dL (0.02-0.49); CREATINE KINASE, TOTAL 15 U/L (39-308); CREATININE 0.95 mg/dL (0.7-1.3)
[2019-08-31 05:57] LABS: BASOPHILS # (AUTO) 0.04 x10^3/uL (0-0.1); BASOPHILS % (AUTO) 0 % (0-1); EOSINOPHILS # (AUTO) 0.04 x10^3/uL (0-0.4); EOSINOPHILS % (AUTO) 0 % (1-7); LYMPHOCYTES # (AUTO) 1.64 x10^3/uL (1-3.4); LYMPHOCYTES % (AUTO) 7 % (22-44); MD SCAN; MONOCYTES # (AUTO) 0.95 x10^3/uL (0.2-0.8); MONOCYTES % (AUTO) 4 % (2-9); NEUTROPHILS # (AUTO) 20.96 x10^3/uL (1.8-6.8); NEUTROPHILS % (AUTO) 89 % (42-75)
[2019-08-31] MEDS: FUROSEMIDE 20 MG/2 ML IV SCH ×2 (09:17→19:54)
[2019-08-31] MEDS: ASCORBIC ACID 500 MG TABLET PO SCH ×2 (09:18→17:39)
[2019-08-31] MEDS: THIAMINE 100MG TABLET PO SCH ×2 (09:18→19:53)
[2019-08-31] MEDS: GUAIFENESIN ER 600 MG TABLET PO SCH ×2 (09:18→19:54)
[2019-08-31] MEDS: FONDAPARINUX 10 MG/0.8 ML SQ SCH (09:19)
[2019-08-31] MEDS: SENNA/DOCUSATE TABLET PO SCH (09:19)
[2019-08-31] MEDS: CHOLECALCIFEROL 5,000u TAB PO SCH (09:19)
[2019-08-31] MEDS: ZINC SULFATE 220 MG CAPSULE PO SCH (09:19)
[2019-08-31] MEDS: ASCORBIC ACID 250 MG TAB PO SCH (19:53)
[2019-08-31] MEDS: MELATONIN 5 MG TABLET PO SCH (19:54)
[2019-09-01] MEDS: DEXAMETHASONE 4 MG/ML, 1ML IVPush SCH (04:29)
[2019-09-01 05:09] LABS: CHLORIDE 102 mmol/L (98-107)
[2019-09-01 05:14] LABS: ALANINE AMINOTRANSFERASE 58 U/L (12-78); ALBUMIN 3.5 g/dL (3.4-5.0); ALKALINE PHOSPHATASE 53 U/L (45-117); ANION GAP 7 mmol/L (5-15); BILIRUBIN,TOTAL 0.6 mg/dL (0.2-1.0); CALCIUM 9.5 mg/dL (8.5-10.1); CREATININE 0.98 mg/dL (0.7-1.3); TOTAL PROTEIN 7.8 g/dL (6.4-8.2)
[2019-09-01 05:38] LABS: MEAN CORPUSCULAR HEMOGLOBIN 28.5 pg (27.5-34.5); MEAN CORPUSCULAR HGB CONC 32.5 g/dL (33.2-36.2); MEAN CORPUSCULAR VOLUME 87.7 fL (81-97); MEAN PLATELET VOLUME 11.9 fL (7.4-10.4); PLATELET COUNT 63 x10^3/uL (130-400); RED BLOOD COUNT 5.96 x10^6/uL (4.38-5.82); RED CELL DISTRIBUTION WIDTH 15.5 % (9.4-14.8)
[2019-09-01 06:06] LABS: BASOPHILS % (AUTO) 0 % (0-1); EOSINOPHILS # (AUTO) 0.08 x10^3/uL (0-0.4); EOSINOPHILS % (AUTO) 0 % (1-7); LYMPHOCYTES # (AUTO) 1.47 x10^3/uL (1-3.4); LYMPHOCYTES % (AUTO) 6 % (22-44); MD SCAN; MONOCYTES # (AUTO) 1.02 x10^3/uL (0.2-0.8); MONOCYTES % (AUTO) 4 % (2-9); NEUTROPHILS # (AUTO) 20.47 x10^3/uL (1.8-6.8); NEUTROPHILS % (AUTO) 89 % (42-75)
[2019-09-01] MEDS: GUAIFENESIN ER 600 MG TABLET PO SCH ×2 (08:24→20:28)
[2019-09-01] MEDS: SENNA/DOCUSATE TABLET PO SCH (08:24)
[2019-09-01] MEDS: ASCORBIC ACID 250 MG TAB PO SCH (08:24)
[2019-09-01] MEDS: FUROSEMIDE 20 MG/2 ML IV SCH ×2 (08:25→20:28)
[2019-09-01] MEDS: CHOLECALCIFEROL 5,000u TAB PO SCH (08:25)
[2019-09-01] MEDS: ZINC SULFATE 220 MG CAPSULE PO SCH (08:25)
[2019-09-01] MEDS: THIAMINE 100MG TABLET PO SCH ×2 (08:25→20:28)
[2019-09-01] MEDS: FONDAPARINUX 10 MG/0.8 ML SQ SCH (08:26)
[2019-09-01] MEDS: ASCORBIC ACID 500 MG TABLET PO SCH ×2 (16:21→20:28)
[2019-09-01] MEDS ORDERED: POLYETHYLENE GLYCOL 17 GM PACKET PO PRN (17:00)
[2019-09-01] MEDS: MAGNESIUM HYDROXIDE 8%, 30ML UDC PO PRN (18:21)
[2019-09-01 20:08] VITALS: BP 109/67
[2019-09-01] MEDS: MELATONIN 5 MG TABLET PO SCH (20:28)
[2019-09-02 01:06] VITALS: BP 133/80
[2019-09-02 06:39] LABS: MEAN CORPUSCULAR HEMOGLOBIN 28.3 pg (27.5-34.5); MEAN CORPUSCULAR VOLUME 88.5 fL (81-97); MEAN PLATELET VOLUME 11.7 fL (7.4-10.4); PLATELET COUNT 58 x10^3/uL (130-400); RED BLOOD COUNT 6.23 x10^6/uL (4.38-5.82); RED CELL DISTRIBUTION WIDTH 15.6 % (9.4-14.8)
[2019-09-02 06:44] LABS: CHLORIDE 102 mmol/L (98-107)
[2019-09-02 06:50] LABS: ALANINE AMINOTRANSFERASE 66 U/L (12-78); ALBUMIN 3.5 g/dL (3.4-5.0); ALKALINE PHOSPHATASE 48 U/L (45-117); ANION GAP 7 mmol/L (5-15); BILIRUBIN,TOTAL 0.7 mg/dL (0.2-1.0); CALCIUM 9.2 mg/dL (8.5-10.1); CREATININE 1.08 mg/dL (0.7-1.3); TOTAL PROTEIN 7.8 g/dL (6.4-8.2)
[2019-09-02 07:20] VITALS: BP 118/76
[2019-09-02 07:20] LABS: BASOPHILS % (AUTO) 0 % (0-1); EOSINOPHILS # (AUTO) 0.07 x10^3/uL (0-0.4); EOSINOPHILS % (AUTO) 0 % (1-7); LYMPHOCYTES # (AUTO) 1.64 x10^3/uL (1-3.4); LYMPHOCYTES % (AUTO) 9 % (22-44); MD SCAN; MONOCYTES # (AUTO) 1.23 x10^3/uL (0.2-0.8); MONOCYTES % (AUTO) 7 % (2-9); NEUTROPHILS # (AUTO) 15.09 x10^3/uL (1.8-6.8); NEUTROPHILS % (AUTO) 84 % (42-75)
[2019-09-02] MEDS ORDERED: DEXAMETHASONE 4 MG/ML, 1ML IVPush SCH (09:00)
[2019-09-02] MEDS: THIAMINE 100MG TABLET PO SCH ×2 (09:13→21:50)
[2019-09-02] MEDS: ZINC SULFATE 220 MG CAPSULE PO SCH (09:13)
[2019-09-02] MEDS: ASCORBIC ACID 500 MG TABLET PO SCH ×3 (09:13→21:50)
[2019-09-02] MEDS: CHOLECALCIFEROL 5,000u TAB PO SCH (09:13)
[2019-09-02] MEDS: GUAIFENESIN ER 600 MG TABLET PO SCH ×2 (09:14→21:50)
[2019-09-02] MEDS: SENNA/DOCUSATE TABLET PO SCH (09:14)
[2019-09-02] MEDS: FONDAPARINUX 10 MG/0.8 ML SQ SCH (09:15)
[2019-09-02] MEDS ORDERED: BISACODYL 10 MG SUPP PR PRN (12:00)
[2019-09-02 12:31] VITALS: BP 119/62
[2019-09-02] MEDS: MAGNESIUM HYDROXIDE 8%, 30ML UDC PO PRN (18:41)
[2019-09-02 20:30] VITALS: BP 124/76
[2019-09-02] MEDS: MELATONIN 5 MG TABLET PO SCH (21:50)
[2019-09-03 01:04] VITALS: BP 129/75
[2019-09-03 05:21] LABS: MEAN CORPUSCULAR HEMOGLOBIN 28.2 pg (27.5-34.5); MEAN CORPUSCULAR HGB CONC 31.8 g/dL (33.2-36.2); MEAN CORPUSCULAR VOLUME 88.6 fL (81-97); MEAN PLATELET VOLUME 10.6 fL (7.4-10.4); PLATELET COUNT 55 x10^3/uL (130-400); RED BLOOD COUNT 6.15 x10^6/uL (4.38-5.82); RED CELL DISTRIBUTION WIDTH 15.9 % (9.4-14.8)
[2019-09-03 05:24] LABS: ALBUMIN 3.4 g/dL (3.4-5.0); ANION GAP 5 mmol/L (5-15); CHLORIDE 104 mmol/L (98-107)
[2019-09-03 05:27] LABS: ALANINE AMINOTRANSFERASE 86 U/L (12-78); ALKALINE PHOSPHATASE 49 U/L (45-117); BILIRUBIN,TOTAL 0.8 mg/dL (0.2-1.0); CALCIUM 9.1 mg/dL (8.5-10.1); TOTAL PROTEIN 7.4 g/dL (6.4-8.2)
[2019-09-03 05:54] LABS: BASOPHILS # (AUTO) 0.01 x10^3/uL (0-0.1); BASOPHILS % (AUTO) 0 % (0-1); EOSINOPHILS # (AUTO) 0.09 x10^3/uL (0-0.4); EOSINOPHILS % (AUTO) 0 % (1-7); LYMPHOCYTES % (AUTO) 7 % (22-44); MD SCAN; MONOCYTES # (AUTO) 1.07 x10^3/uL (0.2-0.8); MONOCYTES % (AUTO) 5 % (2-9); NEUTROPHILS # (AUTO) 18.01 x10^3/uL (1.8-6.8); NEUTROPHILS % (AUTO) 88 % (42-75)
[2019-09-03 08:41] VITALS: BP 121/73
[2019-09-03] MEDS: THIAMINE 100MG TABLET PO SCH ×2 (08:50→20:37)
[2019-09-03] MEDS: CHOLECALCIFEROL 5,000u TAB PO SCH (08:50)
[2019-09-03] MEDS: SENNA/DOCUSATE TABLET PO SCH (08:50)
[2019-09-03] MEDS: FONDAPARINUX 10 MG/0.8 ML SQ SCH (08:50)
[2019-09-03] MEDS: ZINC SULFATE 220 MG CAPSULE PO SCH (08:50)
[2019-09-03] MEDS: GUAIFENESIN ER 600 MG TABLET PO SCH ×2 (08:50→20:37)
[2019-09-03] MEDS: ASCORBIC ACID 500 MG TABLET PO SCH ×3 (08:51→20:37)
[2019-09-03 15:24] VITALS: BP 136/73
[2019-09-03 20:03] VITALS: BP 120/69
[2019-09-03] MEDS: MELATONIN 5 MG TABLET PO SCH (20:38)
[2019-09-03] MEDS: MAGNESIUM HYDROXIDE 8%, 30ML UDC PO PRN (21:58)
[2019-09-04 00:57] VITALS: BP 127/65
[2019-09-04 06:33] LABS: CHLORIDE 105 mmol/L (98-107)
[2019-09-04 06:43] LABS: ALANINE AMINOTRANSFERASE 77 U/L (12-78); ALBUMIN 3.3 g/dL (3.4-5.0); ALKALINE PHOSPHATASE 45 U/L (45-117); ANION GAP 6 mmol/L (5-15); CALCIUM 8.7 mg/dL (8.5-10.1); CREATININE 0.81 mg/dL (0.7-1.3); TOTAL PROTEIN 6.8 g/dL (6.4-8.2)
[2019-09-04 06:57] LABS: MEAN CORPUSCULAR HEMOGLOBIN 28.5 pg (27.5-34.5); MEAN CORPUSCULAR HGB CONC 32.5 g/dL (33.2-36.2); MEAN CORPUSCULAR VOLUME 87.8 fL (81-97); MEAN PLATELET VOLUME 11.8 fL (7.4-10.4); PLATELET COUNT 68 x10^3/uL (130-400); RED BLOOD COUNT 5.81 x10^6/uL (4.38-5.82); RED CELL DISTRIBUTION WIDTH 15.7 % (9.4-14.8)
[2019-09-04 06:59] LABS: MD SCAN
[2019-09-04 07:00] LABS: BASOPHILS # (AUTO) 0.05 x10^3/uL (0-0.1); BASOPHILS % (AUTO) 0 % (0-1); EOSINOPHILS # (AUTO) 0.16 x10^3/uL (0-0.4); EOSINOPHILS % (AUTO) 1 % (1-7); LYMPHOCYTES # (AUTO) 1.73 x10^3/uL (1-3.4); LYMPHOCYTES % (AUTO) 12 % (22-44); MONOCYTES % (AUTO) 7 % (2-9); NEUTROPHILS # (AUTO) 11.81 x10^3/uL (1.8-6.8); NEUTROPHILS % (AUTO) 80 % (42-75)
[2019-09-04 08:13] VITALS: BP 129/80
[2019-09-04] MEDS: CHOLECALCIFEROL 5,000u TAB PO SCH (10:05)
[2019-09-04] MEDS: ZINC SULFATE 220 MG CAPSULE PO SCH (10:05)
[2019-09-04] MEDS: GUAIFENESIN ER 600 MG TABLET PO SCH (10:06)
[2019-09-04] MEDS: SENNA/DOCUSATE TABLET PO SCH (10:06)
[2019-09-04] MEDS: ASCORBIC ACID 500 MG TABLET PO SCH (10:06)
[2019-09-04] MEDS: FONDAPARINUX 10 MG/0.8 ML SQ SCH (10:17)
[2019-09-04] MEDS ORDERED: BUDESONIDE 0.5 MG/2 ML INHA INH SCH (11:00)
[2019-09-04] MEDS: THIAMINE 100MG TABLET PO SCH (11:06)
== END 2019-09-04 17:25 | disposition home or self-care (01) | DRG 208 ==
LOC: ED 15:05 → 4NW 15:09 → ED 17:01 → 4NW 17:04 → ED 17:11 → ICU 08-22 07:00 → 4NW 09-01 11:08
PROVIDERS: ADMIT Internal Medicine; ATTEND Family Medicine
PROC: 5A09357 Assistance with Respiratory Ventilation, Less than 24 Consecutive Hours, Continuous Positive Airway Pressure (ICD-10-PCS; 2019-08-23)
PROC: 5A09357 Assistance with Respiratory Ventilation, Less than 24 Consecutive Hours, Continuous Positive Airway Pressure (ICD-10-PCS; 2019-08-24)
PROC: 5A1935Z Respiratory Ventilation, Less than 24 Consecutive Hours (ICD-10-PCS; principal; 2019-08-26)
PROC: 0BH17EZ Insertion of Endotracheal Airway into Trachea, Via Natural or Artificial Opening (ICD-10-PCS; 2019-08-26)
PROC: 5A09357 Assistance with Respiratory Ventilation, Less than 24 Consecutive Hours, Continuous Positive Airway Pressure (ICD-10-PCS; 2019-08-28)
PROC: 5A09357 Assistance with Respiratory Ventilation, Less than 24 Consecutive Hours, Continuous Positive Airway Pressure (ICD-10-PCS; 2019-08-29)
PROC: 5A09457 Assistance with Respiratory Ventilation, 24-96 Consecutive Hours, Continuous Positive Airway Pressure (ICD-10-PCS; 2019-09-02)
DX: U07.1 COVID-19 (principal); J96.01 Acute respiratory failure with hypoxia; J12.89 Other viral pneumonia; I50.33 Acute on chronic diastolic (congestive) heart failure; Z68.41 Body mass index [BMI] 40.0-44.9, adult; E87.1 Hypo-osmolality and hyponatremia; D68.69 Other thrombophilia; E66.01 Morbid (severe) obesity due to excess calories; G47.33 Obstructive sleep apnea (adult) (pediatric); R73.9 Hyperglycemia, unspecified; D72.829 Elevated white blood cell count, unspecified; E83.51 Hypocalcemia; E88.09 Other disorders of plasma-protein metabolism, not elsewhere classified; D69.6 Thrombocytopenia, unspecified; T38.0X5A Adverse effect of glucocorticoids and synthetic analogues, initial encounter; Z91.14 Patient's other noncompliance with medication regimen; Z79.01 Long term (current) use of anticoagulants
CPT/HCPCS: 36415; 36600; 71045; 71275; 80048; 80053; 82330; 82542; 82550; 82803; 83036; 83605; 83615; 83735; 83880; 84100; 84484; 85025; 85379; 85520; 86022; 86140; 87040; 87081; 87635; 93005; 93308; 93321; 93325; 94660; 96365; 96375; G0378; J0456; J0696; J1100; J1644; J1650; J1940; J2405; J3262; Q9967; J2930; J7050; J7512